=== PATIENT | female | born 1985 | race Caucasian/White ===

== ENCOUNTER 2023-06-19 12:10 | Day surgery (SDC) | payer OTHER ==
[~2023-06-19] VITALS: Ht 157.5 cm; Wt 63.0 kg
[2023-06-19 12:37] VITALS: O2SAT 99
[2023-06-19 14:06] LABS: BASOPHILS % 0.5 % (0.0-2.0); EOSINOPHILS % 1.8 % (0.0-5.0); HEMATOCRIT. 33.8 % (36.0-48.0); HEMOGLOBIN. 11.8 g/dL (12.0-16.0); LYMPHOCYTES % 17.5 % (20.0-50.0); MEAN CORPUSCULAR HEMOGLOBIN 32.4 pg (28.0-32.0); MEAN CORPUSCULAR VOLUME 92.9 fL (81.0-99.0); MEAN PLATELET VOLUME 9.6 fl (7.4-10.4); MONOCYTES % 5.9 % (2.0-8.0); NEUTROPHILS % 74.3 % (40.0-76.0); PLATELET 178 x1000/uL (130-400); RED BLOOD CELL COUNT 3.64 mill/uL (4.2-5.4); RED CELL DISTRIBUTION WIDTH 13.1 % (11.6-14.6)
[2023-06-19 14:18] LABS: CHLORIDE 108 mEq/L (98-107)
[2023-06-19 15:02] LABS: B-HCG QUANTITATIVE 21883 mIU/mL (<3)
[2023-06-19 15:40] VITALS: TEMP 97.7
[2023-06-19] MEDS ORDERED: PROPOFOL 200MG/20ML VIAL IV ONE (17:58)
[2023-06-19] MEDS ORDERED: MIDAZOLAM HCL 2 MG/2 ML VIAL ONE (17:59)
[2023-06-19] MEDS ORDERED: FENTANYL CITRATE/PF 50MCG/ML 2ML VIAL ONE (18:14)
[2023-06-19] MEDS ORDERED: SUCCINYLCHOLINE CHLORIDE 200MG/10ML IV ONE (18:17)
[2023-06-19] MEDS ORDERED: CEFAZOLIN SODIUM 1000MG/VIAL ONE (18:17)
[2023-06-19] MEDS ORDERED: ONDANSETRON HCL 4MG/2ML INJ ONE (18:18)
[2023-06-19] MEDS ORDERED: KETOROLAC 30MG/ML VIAL ONE (18:18)
[2023-06-19] MEDS ORDERED: DEXAMETHASONE 4MG/ML 1ML VIAL ONE (18:18)
[2023-06-19] MEDS ORDERED: OXYTOCIN 10 UNITS/ML 1ML ONE (18:19)
[2023-06-19] MEDS: IBUPROFEN 600MG TABLET PO NR ×2 (18:45→21:04)
[2023-06-19 21:04] VITALS: BP 118/76; PULSE 69; RESP 20
== END 2023-06-19 21:50 | disposition home or self-care (01) | DRG 564 ==
LOC: ER 12:27 → 6EST 16:52 → UNDOADMIN 16:52 → EDBEDREQTM 16:58 → EDBEDREQ 16:58 → OR 17:52 → UNDODISIN 19:00 → OR 21:50
PROVIDERS: ATTEND Obstetrics & Gynecology
PROC: 10D07Z8 Extraction of Products of Conception, Other, Via Natural or Artificial Opening (ICD-10-PCS; principal; 2023-06-19)
DX: O03.4 Incomplete spontaneous abortion without complication (principal); Z82.49 Family history of ischemic heart disease and other diseases of the circulatory system; Z90.49 Acquired absence of other specified parts of digestive tract; Z98.891 History of uterine scar from previous surgery
CPT/HCPCS: 36415; 76801; 80053; 84702; 85025; 86850; 86900; 88305; 99285; J0330; J0690; J1100; J1885; J2250; J2405; J2704; J3010